=== PATIENT | male | born 1995 | race Caucasian/White ===

== ENCOUNTER 2021-01-20 02:43 | Emergency (ER) | payer MEDICAID ==
[~2021-01-20] VITALS: Ht 170.2 cm; Wt 66.0 kg
[~2021-01-20 02:43] MED LIST: OTC MED
[2021-01-20 05:05] VITALS: BP 117/82
== END 2021-01-20 05:12 | disposition home or self-care (01) ==
LOC: ER 02:43
DX: T18.9XXA Foreign body of alimentary tract, part unspecified, initial encounter (principal); X58.XXXA Exposure to other specified factors, initial encounter; Y93.89 Activity, other specified; Y92.89 Other specified places as the place of occurrence of the external cause; Y99.8 Other external cause status
CPT/HCPCS: 70360; 99283

== ENCOUNTER 2023-02-08 10:49 | Emergency (ER) | payer SELFPAY ==
[~2023-02-08] VITALS: Ht 170.2 cm; Wt 79.4 kg
[2023-02-08 10:57] VITALS: BP 115/71; PULSE 76; RESP 16; TEMP 98.5; O2SAT 98
[2023-02-08] MEDS ORDERED: PENI500T MT (11:32)
[2023-02-08] MEDS ORDERED: IBUP-2029 MT (11:33)
[2023-02-08] MEDS ORDERED: METHYLPREDNISOLONE SOD SUCC 125MG/2ML (ACT-O-VIAL) IM ONE (12:00)
== END 2023-02-08 12:25 | disposition home or self-care (01) ==
LOC: ER 11:14
DX: J02.0 Streptococcal pharyngitis (principal); R50.9 Fever, unspecified; Z20.822 Contact with and (suspected) exposure to COVID-19
CPT/HCPCS: 99283; 87426; 87430; 96372; J2930; C9803